=== PATIENT | female | born 1940 | race American Indian/Alaskan Native ===

== ENCOUNTER 2016-12-13 11:19 | Emergency (ER) | payer MEDICARE ==
--- NOTE | 2016-12-13 11:25 | ED PDOC ---
Arrival/HPI - General Chief Complaint: Cardiac Arrest Time Seen by Provider: 12/13/16 11:23 - History of Present Illness Associated Symptoms (Text): 12/13/16 11:23 Patient arrived with medics. Prior to arrival she was treated with CPR, intubation, multiple epinephrine doses, sodium bicarbonate, calcium chloride, amiodarone. The medics found her in ventricular tachycardia which deteriorated into ventricular fibrillation, and EMD. There was never a pulse. They worked on the patient for over one hour. She was pronounced on arrival. No pulse no respirations and patient is unresponsive. Family/Social History Family/Social History: Unknown Family HX Allergies/Home Meds Allergies/Adverse Reactions: Allergies No Known Allergies Allergy (Verified 12/13/16 11:25) Home Medications: Home Meds Medication Instructions Recorded Confirmed Ondansetron [Zofran Tab] 4 mg PO Q6 PRN 12/13/16 12/13/16 Prochlorperazine [Compazine] 10 mg PO PRN PRN 12/13/16 12/13/16 Warfarin [Coumadin] 4 mg PO DAILY 12/13/16 12/13/16 amLODIPine [Norvasc] 5 mg PO DAILY 12/13/16 12/13/16 Physical Exam Vital Signs Temp Pulse Resp 12/13/16 11:25 0 L 0 L 12/13/16 11:22 98.0 F Medical Decision Making ED Course and Treatment: 12/13/16 13:54 Family reported that the patient does have a living will and she is a DNR. Disposition/Present on Arrival - Present on Arrival Any Indicators Present on Arrival: No History of DVT/PE: No History of Uncontrolled Diabetes: No Urinary Catheter: No History of Decub. Ulcer: No - Disposition Have Diagnosis and Disposition been Completed?: Yes Diagnosis: Cardiac arrest Disposition: WITH WITHOUT AUTOPSY Disposition Time: 11:25 Patient Plan: Other Patient Problems: Current Active Problems Problem Status Onset Cardiac arrest Acute Condition:
[2016-12-13 11:28] VITALS: BMI 22.6
[2016-12-13 11:34] VITALS: PULSE 0; RESP 0
[2016-12-13 11:53] VITALS: TEMP 98
== END 2016-12-13 14:48 ==
LOC: ED 11:19
DX: I46.9 Cardiac arrest, cause unspecified (principal)